=== PATIENT | male | born 1955 ===

== ENCOUNTER 2019-03-18 09:15 | Inpatient (IN) | payer OTHER ==
[~2019-03-18] VITALS: Ht 182.9 cm; Wt 89.8 kg
[2019-03-18] MEDS ORDERED: HUMULIN N100 UNIT/2 (11:15)
[2019-03-18] MEDS ORDERED: METFORMIN HCL1000 M1 PO (11:15)
[2019-03-18] MEDS ORDERED: GLIPIZIDE10 MG PO (11:16)
[2019-03-18] MEDS ORDERED: ZOCOR20 MG PO (11:16)
[2019-03-18] MEDS ORDERED: OMEPRAZOLE10 MG PO (11:16)
[2019-03-18] MEDS ORDERED: RESTORIL15 M1 PO (11:16)
[2019-03-18] MEDS ORDERED: CLORAZEPATE D3.75 MG PO (11:16)
[2019-03-18] MEDS ORDERED: TAMS0.4C PO (11:17)
[2019-03-18] MEDS ORDERED: FINASTERIDE5 MG PO (11:17)
[2019-03-18] MEDS ORDERED: LISINOPRIL5 MG PO (11:17)
== END 2019-03-25 17:34 | disposition home or self-care (01) | DRG 330 ==
LOC: SURH 03-23 07:06 → O/R 03-23 07:06 → SURH 03-23 09:15
PROVIDERS: ADMIT Colon & Rectal Surgery
PROC: 0D1L0Z4 Bypass Transverse Colon to Cutaneous, Open Approach (ICD-10-PCS; principal; 2019-03-23 13:45)
DX: C18.4 Malignant neoplasm of transverse colon (principal); K92.1 Melena; E11.9 Type 2 diabetes mellitus without complications; I10 Essential (primary) hypertension; N40.0 Benign prostatic hyperplasia without lower urinary tract symptoms; K21.9 Gastro-esophageal reflux disease without esophagitis; E78.00 Pure hypercholesterolemia, unspecified; Z79.4 Long term (current) use of insulin